=== PATIENT | female | born 1980 | race Two or more races ===

== ENCOUNTER 2024-06-16 05:17 | Day surgery (SDC) | payer OTHER ==
[2024-06-04 09:03] VITALS: BP 118/83
[~2024-06-16] VITALS: Ht 157.5 cm; Wt 61.2 kg
[2024-06-16] MEDS ORDERED: CEFAZOLIN SODIUM 1,000 MG VIAL ONE ×2 (06:55→10:19)
[2024-06-16] MEDS ORDERED: BUPIVACAINE HCL/MPF 0.5% 30ML VIAL ONE (06:55)
[2024-06-16] MEDS ORDERED: CEFAZOLIN SODIUM 1,000 MG VIAL IV SCH (09:45)
[2024-06-16] MEDS ORDERED: FAMOTIDINE/PF 20 MG/10 ML SYRINGE IV SCH (09:45)
[2024-06-16] MEDS ORDERED: FAMOTIDINE/PF 20 MG/2 ML VIAL ONE (10:22)
== END 2024-06-16 11:15 | disposition home or self-care (01) ==
LOC: CIR.AMB 05:17
PROVIDERS: ATTEND Specialist
DX: K80.10 Calculus of gallbladder with chronic cholecystitis without obstruction (principal)